=== PATIENT | female | born 1970 | race Caucasian/White ===

== ENCOUNTER 2017-04-30 17:43 | Emergency (ER) | payer SELFPAY ==
[2017-04-30] MEDS ORDERED: Sodium Chloride 0.9% 1,000 ML IV ONE (19:16)
[2017-04-30] MEDS ORDERED: Sodium Chloride 0.9% 1,000 ML ONE (19:20)
[2017-04-30 19:28] LABS: BASO % 0.5 % (0.0-2.0); EOS # 0.1 K/uL (0.0-0.7); EOS % 1.1 % (0.0-4.0); HEMATOCRIT 43.7 % (34.0-47.0); LYMPH # 2.3 K/uL (1.0-4.3); LYMPH % 38.2 % (20.0-40.0); MEAN CELL VOLUME 88.2 fL (81.0-99.0); MEAN CORPUSCULAR HEMOGLOBIN 29.9 pg (27.0-31.0); MEAN CORPUSCULAR HGB CONC 33.9 g/dL (33.0-37.0); MEAN PLATELET VOLUME 9.3 fL (7.2-11.7); MONO # 0.4 K/uL (0.0-0.8); MONO % 6.2 % (0.0-10.0); NRBC % 0.1 % (0.0-2.0); RED CELL DISTRIBUTION WIDTH 13.1 % (11.5-14.5)
[2017-04-30 19:31] LABS: RBC URINE 8 /hpf (0-3); TRANSITIONAL EPITHIAL 1 /hpf (0-3); URINE BACTERIA RARE (<OCC); URINE BILIRUBIN NEGATIVE (NEGATIVE); URINE COLOR Amber (YELLOW); URINE GLUCOSE (UA) NORMAL (Normal); URINE HYALINE CAST 0-2 /lpf (0-2); URINE KETONE NEGATIVE (NEGATIVE); URINE PROTEIN NEGATIVE (NEGATIVE); URINE UROBILINOGEN NORMAL mg/dL (0.2-1.0); WBC URINE 3 /hpf (0-5)
[2017-04-30 19:32] LABS: URINE BLOOD 1+ (NEGATIVE); URINE LEUKOCYTE ESTERASE NEGATIVE Leu/uL (Negative)
[2017-04-30 19:37] LABS: CHLORIDE 101 mmol/L (98-107)
[2017-04-30 19:38] LABS: POTASSIUM 3.6 mmol/L (3.6-5.2); SODIUM 143 mmol/L (132-148)
[2017-04-30 19:40] LABS: ALB/GLOB RATIO 1.4 (1.0-2.1); ALKALINE PHOSPHATASE 54 U/L (38-126); ALT/SGPT 40 U/L (9-52); AST/SGOT 23 U/L (14-36); BILIRUBIN,TOTAL 0.4 mg/dL (0.2-1.3); BLOOD UREA NITROGEN 18 mg/dL (7-17); CARBON DIOXIDE 27 mmol/L (22-30); GFR AFRICAN-AMERICAN > 60; GLUCOSE,RANDOM 135 mg/dL (65-105)
[2017-04-30 19:41] LABS: CALCIUM 8.9 mg/dl (8.6-10.4)
--- NOTE | 2017-04-30 19:49 | C.PDOC ---
History Of Present Illness 47 year old female presents to the ED with complaints of suprapubic pain for one week with associated vaginal discharge and nausea.Patient states has only been sexually with of 15 years. She denies fever, vomiting, diarrhea, dysuria, or history of STDs. Time Seen by Provider: 04/30/17 18:45 Chief Complaint (Nursing): Abdominal Pain History Per: Patient History/Exam Limitations: no limitations Onset/Duration Of Symptoms: Days (1 week ) Current Symptoms Are (Timing): Still Present Location Of Pain/Discomfort: Suprapubic Radiation Of Pain To:: None Quality Of Discomfort: "Pain" Associated Symptoms: Nausea. denies: Fever, Chills, Vomiting Exacerbating Factors: None Alleviating Factors: None Recent travel outside of the [place]: No Abnormal Vaginal Bleeding: No Past Medical History Reviewed: Historical Data, Nursing Documentation, Vital Signs Vital Signs: Last Vital Signs Temp 98.4 F 04/30/17 22:06 Pulse 56 L 04/30/17 22:06 Resp 20 04/30/17 22:06 BP 136/85 04/30/17 22:06 Pulse Ox 100 04/30/17 22:06 Family History: States: Unknown Family Hx - Social History Hx Alcohol Use: No Hx Substance Use: No - Immunization History Hx Tetanus Toxoid Vaccination: Yes Hx Influenza Vaccination: Yes Hx Pneumococcal Vaccination: No Review Of Systems Constitutional: Negative for: Fever, Chills Cardiovascular: Negative for: Chest Pain, Palpitations Respiratory: Negative for: Cough, Shortness of Breath Gastrointestinal: Positive for: Nausea, Abdominal Pain. Negative for: Vomiting , Diarrhea Genitourinary: Positive for: Vaginal Discharge. Negative for: Dysuria, Vaginal Bleeding Skin: Negative for: Rash Physical Exam - Physical Exam Appears: Non-toxic, No Acute Distress, Other (Patient appears comfortable) Skin: Warm, Dry Head: Atraumatic, Normacephalic Eye(s): bilateral: Normal Inspection, PERRL, EOMI Oral Mucosa: Moist Neck: Supple Chest: Symmetrical, No Deformity Cardiovascular: Rhythm Regular, No Murmur Respiratory: Normal Breath Sounds, No Rales, No Rhonchi, No Wheezing Gastrointestinal/Abdominal: Soft, No Tenderness, No Distention, No Guarding, No Rebound Pelvic: Normal External Exam, No Vaginal Bleeding, Vaginal Discharge (thick yellow-heriberto white discharge in the vaginal vault ), No Cervical Motion Tenderness , No Adnexal Tenderness Extremity: Normal ROM, No Tenderness Neurological/Psych: Oriented x3 ED Course And Treatment - Laboratory Results Result Diagrams: 04/30/17 19:22 04/30/17 19:22 O2 Sat by Pulse Oximetry: 99 (RA) Progress Note: Labs were ordered and patient was given Zithromax, Rocephin, Toradol, and IV fluids. Disposition Counseled Patient/Family Regarding: Diagnosis, Need For Followup, Rx Given - Disposition Referrals: [facility] [Outside] Disposition: HOME/ ROUTINE Disposition Time: 21:25 Condition: STABLE Additional Instructions: SEGUIMIENTO CON CONNORS DOCTOR / CLNICA EN 1-2 RODRIGUEZ DANIELLE QUE CONNORS SOCIO SEXUAL SEA PRUEBA / TRATADO NO SEX X 1 SEMANA DEVUELVA A LA ARSH DE EMERGENCIA SI LOS SNTOMAS EMPEORARAN Prescriptions: metroNIDAZOLE [Flagyl] 500 mg PO BID #14 tab Instructions: Cervicitis (ED) Forms: [employer] ([place]er) Print Language: MEXICAN - Clinical Impression Clinical Impression: Vaginal discharge, Cervicitis - Scribe Statement The provider has reviewed the documentation as recorded by the Scribe Andree Garza All medical record entries made by the Scribe were at my direction and personally dictated by me. I have reviewed the chart and agree that the record accurately reflects my personal performance of the history, physical exam, medical decision making, and the department course for this patient. I have also personally directed, reviewed, and agree with the discharge instructions and disposition.
[2017-04-30] MEDS ORDERED: cefTRIAXone (Rocephin) 250 mg Inj IM STA (21:17)
[2017-04-30 22:07] VITALS: BP 136/85; PULSE 56; RESP 20; TEMP 98.4
[2017-04-30 22:43] VITALS: O2SAT 99
== END 2017-04-30 22:06 | disposition home or self-care (01) ==
LOC: C.ER 17:43
DX: N72 Inflammatory disease of cervix uteri (principal); N89.8 Other specified noninflammatory disorders of vagina
CPT/HCPCS: 80053; 81001; 83690; 84703; 85025; 87491; 87591; 96361; 96372; 96374; 99284; J0696; J1885; J7040